=== PATIENT | male | born 1960 | race Caucasian/White ===

== ENCOUNTER → 2018-06-25 | Outpatient (CLI) | payer OTHER ==
[~2018-06-25] MED LIST: ALPR1TAB6 PO; AMOX1TAB58 PO; ANAS1TAB PO; ASCO500T2 PO; DOXY100T PO; FLUC200T PO; Fluconazole PO; LACT1CAP38 PO; LIDO700A39 TD; METF500T16 PO; SULF1TAB24 PO; TRAM50TA PO
== END | disposition home or self-care (01) ==
LOC: PMGWOUND 10:33
PROVIDERS: ATTEND Preventive Medicine Undersea and Hyperbaric Medicine
DX: E11.621 Type 2 diabetes mellitus with foot ulcer (principal); L97.514 Non-pressure chronic ulcer of other part of right foot with necrosis of bone; E11.52 Type 2 diabetes mellitus with diabetic peripheral angiopathy with gangrene; I96 Gangrene, not elsewhere classified; F32.9 Major depressive disorder, single episode, unspecified; F41.9 Anxiety disorder, unspecified; J45.909 Unspecified asthma, uncomplicated; F17.290 Nicotine dependence, other tobacco product, uncomplicated; E66.9 Obesity, unspecified; Z68.30 Body mass index [BMI] 30.0-30.9, adult; Z79.84 Long term (current) use of oral hypoglycemic drugs; Z88.8 Allergy status to other drugs, medicaments and biological substances
CPT/HCPCS: 87071; 87075; 99214; G0463

== ENCOUNTER → 2018-08-15 | Outpatient (CLI) | payer OTHER ==
[2018-06-27 15:00] VITALS: BP 148/82
--- NOTE | 2018-08-15 17:23 | RAD ---
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 There are old bony fragments fragments and/or sesamoid bones along the plantar aspect of the distal first metatarsal. The remaining toes are held in dorsiflexion at the MTP joint levels. No fracture or destructive bony lesion is seen. There are mild scattered degenerative changes. Arterial calcifications are present. There is diffuse soft tissue swelling about the foot. IMPRESSION: No acute bony abnormality is detected. Electronically signed by: Chito Jacobo MD (08/15/2018 5:20 PM) [facility]
== END | disposition home or self-care (01) ==
LOC: PMGWOUND 10:56
PROVIDERS: ATTEND Preventive Medicine Undersea and Hyperbaric Medicine
DX: E11.621 Type 2 diabetes mellitus with foot ulcer (principal); L97.514 Non-pressure chronic ulcer of other part of right foot with necrosis of bone; E11.52 Type 2 diabetes mellitus with diabetic peripheral angiopathy with gangrene; I96 Gangrene, not elsewhere classified; L84 Corns and callosities; F32.9 Major depressive disorder, single episode, unspecified; F17.210 Nicotine dependence, cigarettes, uncomplicated; F41.9 Anxiety disorder, unspecified; J45.909 Unspecified asthma, uncomplicated; E66.9 Obesity, unspecified
CPT/HCPCS: 73630; 97597

== ENCOUNTER → 2018-08-19 | Outpatient (CLI) | payer OTHER ==
[2018-06-27 15:00] VITALS: BP 148/82
== END | disposition home or self-care (01) ==
LOC: PMGWOUND 13:10
PROVIDERS: ATTEND Emergency Medicine Undersea and Hyperbaric Medicine
DX: E11.621 Type 2 diabetes mellitus with foot ulcer (principal); L97.512 Non-pressure chronic ulcer of other part of right foot with fat layer exposed; E11.52 Type 2 diabetes mellitus with diabetic peripheral angiopathy with gangrene; I96 Gangrene, not elsewhere classified; L84 Corns and callosities; F41.9 Anxiety disorder, unspecified; F32.9 Major depressive disorder, single episode, unspecified; F17.210 Nicotine dependence, cigarettes, uncomplicated; E66.9 Obesity, unspecified; J45.909 Unspecified asthma, uncomplicated; Z68.30 Body mass index [BMI] 30.0-30.9, adult
CPT/HCPCS: 11042

== ENCOUNTER → 2018-08-26 | Outpatient (CLI) | payer OTHER ==
[2018-06-27 15:00] VITALS: BP 148/82
== END | disposition home or self-care (01) ==
LOC: PMGWOUND 14:00
PROVIDERS: ATTEND Emergency Medicine Undersea and Hyperbaric Medicine
DX: E11.621 Type 2 diabetes mellitus with foot ulcer (principal); L97.512 Non-pressure chronic ulcer of other part of right foot with fat layer exposed; E11.52 Type 2 diabetes mellitus with diabetic peripheral angiopathy with gangrene; I96 Gangrene, not elsewhere classified; L84 Corns and callosities; F41.9 Anxiety disorder, unspecified; F32.9 Major depressive disorder, single episode, unspecified; J45.909 Unspecified asthma, uncomplicated; F17.210 Nicotine dependence, cigarettes, uncomplicated; E66.9 Obesity, unspecified; Z68.30 Body mass index [BMI] 30.0-30.9, adult
CPT/HCPCS: 99213

== ENCOUNTER → 2018-09-02 | Outpatient (CLI) | payer OTHER ==
[2018-06-27 15:00] VITALS: BP 148/82
== END | disposition home or self-care (01) ==
LOC: PMGWOUND 12:39
PROVIDERS: ATTEND Emergency Medicine Undersea and Hyperbaric Medicine
DX: E11.621 Type 2 diabetes mellitus with foot ulcer (principal); L97.512 Non-pressure chronic ulcer of other part of right foot with fat layer exposed; E11.52 Type 2 diabetes mellitus with diabetic peripheral angiopathy with gangrene; I96 Gangrene, not elsewhere classified; L84 Corns and callosities; F41.9 Anxiety disorder, unspecified; F32.9 Major depressive disorder, single episode, unspecified; J45.909 Unspecified asthma, uncomplicated; F17.210 Nicotine dependence, cigarettes, uncomplicated; E66.9 Obesity, unspecified; Z68.30 Body mass index [BMI] 30.0-30.9, adult
CPT/HCPCS: 99214; G0463

== ENCOUNTER → 2018-09-25 | Outpatient (CLI) | payer OTHER ==
[2018-06-27 15:00] VITALS: BP 148/82
== END | disposition home or self-care (01) ==
LOC: PMGWOUND 13:15
PROVIDERS: ATTEND Emergency Medicine Undersea and Hyperbaric Medicine
DX: E11.621 Type 2 diabetes mellitus with foot ulcer (principal); L97.518 Non-pressure chronic ulcer of other part of right foot with other specified severity; E11.52 Type 2 diabetes mellitus with diabetic peripheral angiopathy with gangrene; I96 Gangrene, not elsewhere classified; F41.9 Anxiety disorder, unspecified; L84 Corns and callosities; F32.9 Major depressive disorder, single episode, unspecified; J45.909 Unspecified asthma, uncomplicated; F17.210 Nicotine dependence, cigarettes, uncomplicated; E66.9 Obesity, unspecified; Z68.30 Body mass index [BMI] 30.0-30.9, adult
CPT/HCPCS: 99213